=== PATIENT | female | born 1960 | race Caucasian/White ===

== ENCOUNTER 2017-10-16 11:36 | Outpatient (CLI) | payer MEDICAID ==
[~2017-10-16] VITALS: Ht 162.6 cm; Wt 113.6 kg
--- NOTE | ~2017-10-16 | OP ---
PATIENT NAME: LÓEPZ CAMPOS MEDICAL RECORD: [id number] :62 LOCATION:D.CAT ADMISSION DATE: SURGEON: NICKIE PETERSEN MD DATE OF OPERATION: 10/16/2017 PROCEDURE: Left heart catheterization, selective coronary angiography, right radial approach. CATHETERS: A 5-Montserratian sheath, 5/4 Jarad, 5/4 pig. The procedure was well tolerated. The patient returned to the goldberg, sheath removed. TR band was placed. FINDINGS: Left ventriculography in the 30-degree LOVE view: Normal wall motion, normal systolic function. CORONARY ANATOMY: 1. LEFT MAIN: Left main is free of disease. 2. LAD: Free of disease in the diagonal system. 3. CIRCUMFLEX: Free of disease in marginal system. 4. RIGHT CORONARY ARTERY: Dominant artery, gives rise to PDA, free of disease. IMPRESSION: Normal systolic function. Normal coronary anatomy. 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
--- NOTE | ~2017-10-16 | HEMODYNAMI ---
PATIENT:LÓPEZ CAMPOS MEDICAL RECORD: [id number] : 62 LOCATION:[facility] ADMISSION DATE: 10/16/17 Generatedon:10/16/201715:41 Patient name: LÓPEZ CAMPOS Patient #: [id number] : 1960 Date of study: 10/16/2017 Page: Of Hemodynamic Procedure Report Patient Data Patient Demographics Procedure consent was obtained First Name: LÓPEZ Gender: Female Last Name: BETH : 1960 Middle Initial: RAMSES Age: 57 year(s) Patient #: [id number] Race: Unknown SSN: [id number] Additional ID: [id number] Contact details [address]: [address] [place] [address] State: [place] City: [place] Zip code: [address] Past Medical History Allergies Allergen Reaction Date Comments Reported Other allergy 10/16/2017 bactrim Admission Admission Data Admission Date: 10/16/2017 Admission Time: 11:36 Arrival Date: 10/16/2017 Arrival Time: 14:00 Admit Source: Other Insurance Payor: Medicaid Height (in.): 64 BSA: 2.02 (m2) Height (cm.): 162.56 BMI: 36.9 (kg/m2) Weight (lbs.): 215 Weight (kg.): 97.52 Lab Results Lab Result Date: 10/16/2017 Lab Result Time: 0:00 Biochemistry Name Units Result Min Max BUN mg/dl 18 --(---*)-- 7 18 Creatinine mg/dl 0.8 --(-*--)-- 0.6 1.3 CBC Name Units Result Min Max Hemoglobin g/dl 13.7 --(*---)-- 13.5 17.5 Procedure Procedure Types Cath Procedure Diagnostic Procedure LHC LHC w/Coronaries Sedation Charges Moderate Sedation up to 15 minutes Procedure Description Procedure Date Procedure Date: 10/16/2017 Procedure Start Time: 15:19 Procedure End Time: 15:39 Procedure Staff Name Function Carrington Boone MD Performing Physician Cynthia Colon RT Monitor Theresa Duran RT Scrub Ilsa Raymundo RN Nurse Indication Angina Procedure Data Cath Procedure Fluoroscopy Diagnostic fluoroscopy Total fluoroscopy Time: 5.9 time: 5.9 min min Diagnostic fluoroscopy Total fluoroscopy dose: 696 dose: 696 mGy mGy Contrast Material Contrast Material Type Amount (ml) Isovue 300 63 Entry Location Entry Primary Successful Side Size Upsize Upsize Entry Closure Grace ccessful Closure Location (Fr) 1 (Fr) 2 (Fr) Remarks Device Remarks Radial Right 6 Fr Mechanical artery Short Compression Estimated blood loss: 5 ml Diagnostic catheters Device Type Used For End Catheter Placement DIAGNOSTIC [place] 110cm 5 Multi-vessel Fr catheter ([id number]) Angiography DIAGNOSTIC AR 2 MOD 5 Fr Multi-vessel catheter ([id number]) Angiography DIAGNOSTIC JL 3.5 5Fr Multi-vessel catheter ([id number]) Angiography Procedure Complications No complications Procedure Medications Medication Administration Route Dosage Oxygen etCO2 Nasal cannula 2 l/min Heparin Flush Bag added to field 2 bags (1000units/500ml NS) 0.9% NaCl I.V. 100 ml/hr Radial Cocktail added to field 1 syringe (Verapomil 2mg/Nitro 400mcg/Heparin 1500units) Fentanyl I.V. 100 mcg Versed I.V. 2 mg Versed I.V. 1 mg Fentanyl I.V. 50 mcg Versed I.V. 1 mg Fentanyl I.V. 50 mcg Fentanyl I.V. 50 mcg Hemodynamics Rest BSA: 2.02 (m2) HGB: 13.7 (g/dl) O2 Consumption: Estimated: 188.63 (ml/min) O2 Co nsumption indexed: Estimated:93.38 (ml/min/m) Heart Rate: 63 (bpm) Pressure Samples Time Site Value (mmHg) Purpose Heart Use Rate(bpm) 15:31 LV 154/14,14 Snapshot 86 Gradients Valve Time Site Site Mean SEP/DFP Peak To Heart Use 1 2 (mmHg) (sec/min) Peak Rate (mmHg) (bpm) Aortic 15:32 LV AO 94 Snapshots Pre Cath Intra NCS Post Cath Vital Signs Time Heart Resp SPO2 etCO2 NIBP (mmHg) Rhythm Pain Sedation Rate (ipm) (%) (mmHg) Status Level (bpm) 15:04:26 78 16 100 44.4 166/86(129) NSR 0 (11) 10(A) , No pain 15:09:00 65 17 95 39.1 154/79(132) NSR 0 (11) 10(A) , No pain 15:13:29 83 15 99 35.3 160/82(122) NSR 0 (11) 10(A) , No pain 15:17:51 66 18 95 29.3 127/66(94) NSR 0 (11) 10(A) , No pain 15:22:07 76 16 98 42.1 117/88(109) NSR 0 (11) 9(A) , No pain 15:26:25 89 15 98 39.1 122/71(84) NSR 0 (11) 9(A) , No pain 15:30:45 68 16 98 41.3 114/67(101) NSR 0 (11) 9(A) , No pain 15:35:03 71 16 95 41.3 116/68(102) NSR 0 (11) 10(A) , No pain 15:40:04 72 13 98 40.6 138/75(128) NSR 0 (11) 10(A) , No pain Medications Time Medication Route Dose Verified Delivered Reason Notes Ef fectiveness by by 15:07:40 Oxygen etCO2 2 l/min Ilsa Shultz Per Nasal Breanne Boone physician cannula 15:07:47 Heparin Flush added 2 bags Ilsa Shultz used for Bag to Breanne Boone procedure (1000units/500ml field SCHNEIDER NS) 15:07:56 0.9% NaCl I.V. 100 Ilsa Shultz Per ml/hr Breanne Boone physician 15:12:29 Fentanyl I.V. 100 mcg Ilsa Shultz for Breanne Boone sedation 15:12:37 Versed I.V. 2 mg Ilsa Boone MD 15:16:28 Versed I.V. 1 mg Ilsa Boone MD 15:16:31 Fentanyl I.V. 50 mcg Ilsa Shultz for Breanne Boone sedation 15:24:52 Versed I.V. 1 mg Ilsa Boone MD 15:24:56 Fentanyl I.V. 50 mcg Ilsa Shultz for Breanne Boone sedation 15:25:02 Radial Cocktail added 1 Ilsa Shultz used for (Verapomil to syringe Breanne Boone procedure 2mg/Nitro field SCHNEIDER 400mcg/Heparin 1500units) 15:29:44 Fentanyl I.V. 50 mcg Ilsa Shultz for Breanne Boone sedation Procedure Log Time Note 14:50:56 Diagnostic Cath Status : Elective 14:51:36 Indication : Angina 14:51:39 Theresa Duran RT(R) sent for patient. Start room use. 14:51:40 Time tracking: Regular hours (M-F 7:00 - 5:00) 14:51:45 Plan of Care:Hemodynamics will remain stable., Cardiac rhythm will remain stable., Comfort level will be maintained., Respiratory function will remain adequate., Patient/ family verbilizes understanding of procedure., Procedure tolerated without complication., Recovers from procedure without complications.. 14:52:55 Informed consent obtained and on chart 14:52:59 Admit Source: Other 14:53:03 Arrival Date: 10/16/2017 2:00:00 PM 14:53:12 Insurance Payor : Medicaid 14:53:23 Patient Height : 64 inches 14:53:27 Patient Weight : 215 lbs 14:55:06 Lab Result : BUN 18 mg/dl 14:55:06 Lab Result : Hemoglobin 13.7 g/dl 14:55:06 Lab Result : Creatinine 0.8 mg/dl 14:58:00 Patient received from Pre/Post Procedure Room to [facility] 2 Alert and oriented. Tansferred to table in Supine position. 14:58:01 Warm blankets applied, and micah hugger turned on for patient comfort. 14:58:01 Correct patient and procedure confirmed by team. 14:58:02 ECG and BP/O2 sat monitors applied to patient. 15:02:57 Vital chart was started 15:07:40 Oxygen 2 l/min etCO2 Nasal cannula was administered by Carrington Boone MD; Per physician; 15:07:47 Heparin Flush Bag (1000units/500ml NS) 2 bags added to field was administered by Carrington Boone MD; used for procedure; 15:07:56 0.9% NaCl 100 ml/hr I.V. was administered by Carrington Boone MD; Per physician; 15:10:42 Baseline sample Acquired. 15:10:47 Rhythm: sinus rhythm 15:10:50 Full Disclosure recording started 15:10:54 H&P Date Dictated: 10/16/2017 Within 30 days and on chart., H&P Addendum completed by physician on day of procedure. (MUST COMPLETE FOR ALL OUTPATIENTS). 15:10:56 Pre-procedure instructions explained to patient. 15:10:56 Pre-op teaching completed and patient verbalized understanding. 15:10:57 Family in waiting room. 15:10:59 Patient NPO since Midnight. 15:11:21 Patient allergic to Other allergybactrim 15:11:30 Is the patient allergic to Iodine/contrast media? No. 15:11:32 Was the patient premedicated? No 15:11:32 Is patient on blood thinner?No 15:11:34 Patient diabetic? Yes. 15:11:37 If diabetic: On Metformin? Yes 15:11:40 If on Metformin: Last Dose? 10/12/2017 15:11:44 Previous problem with sedation/anesthesia? No ? 15:11:45 Snore? Yes 15:11:46 Sleep apnea? No 15:11:47 Deviated septum? No 15:11:48 Opens mouth fully? Yes 15:11:49 Sticks out tongue? Yes 15:11:50 Airway obstruction? No ? 15:11:53 Dentures? No ? 15:11:56 Pre procedure: right dorsailis pedis pulse 1+ Palpable, but thready & weak; easily obliterated 15:11:58 Pre procedure: left dorsailis pedis pulse 1+ Palpable, but thready & weak; easily obliterated 15:12:01 Patient pain scale 0/10 ?. 15:12:07 IV patent on arrival in left antecubital with 0.9% NaCl at [facility]. 15:12:09 Lab results completed and on chart. 15:12:13 Right Radial & Right Groin area was prepped with chlora-prep and draped in sterile fashion 15:12:14 Alarms reviewed by R. N. 15:12:14 Sharps counted by scrub and verified by R.N. 15:12:16 Physician arrived 15:12:16 --------ALL STOP TIME OUT------ 15:12:16 Final Timeout: patient, procedure, and site verified with staff and physician. All members of the team are in agreement. 15:12:21 Right Radial & Right Groin site verified by team. 15:12:24 Physical assessment completed. ASA score P 2 - A patient with mild systemic disease as per Carrington Boone MD. 15:12:28 Sedation plan: IV Moderate Sedation Medication:Versed, Fentanyl 15:12:29 Fentanyl 100 mcg I.V. was administered by Carrington Boone MD; for sedation; 15:12:33 Use device set Radial Dx or PCI 15:12:34 ACIST Syringe (51903) opened to sterile field. 15:12:35 Medline Cath Pack ([id number]) opened to sterile field. 15:12:35 Bag Decanter (2002S) opened to sterile field. 15:12:37 Versed 2 mg I.V. was administered by Carrington Boone MD; ; 15:12:37 DIAGNOSTIC WIRE .035 260cm J wire (555786) opened to sterile field. 15:12:37 ACIST Hand Control (85617) opened to sterile field. 15:12:38 ACIST Manifold (15650) opened to sterile field. 15:12:39 MBrace Wrist Support ([id number]) opened to sterile field. 15:12:48 SHEATH 6Fr Prelude Radial ([id number]) opened to sterile field. 15:16:28 Versed 1 mg I.V. was administered by Carrington Boone MD; ; 15:16:31 Fentanyl 50 mcg I.V. was administered by Carrington Boone MD; for sedation; 15:16:39 Zero performed for pressure channel P1 15:18:59 Procedure started. 15:19:02 Local anesthetic to right radial artery with Lidocaine 2% by Carrington Boone MD.INITIAL ACCESS ONLY 15:24:08 A 6 Fr Short sheath was inserted into the Right Radial artery 15:24:16 A DIAGNOSTIC [place] 110cm 5 Fr catheter (243001) was advanced over the wire and used for Multi-vessel Angiography. 15:24:52 Versed 1 mg I.V. was administered by Carrington Boone MD; ; 15:24:56 Fentanyl 50 mcg I.V. was administered by Carrington Boone MD; for sedation; 15:25:02 Radial Cocktail (Verapomil 2mg/Nitro 400mcg/Heparin 1500units) 1 syringe added to field was administered by Carrington Boone MD; used for procedure; 15:26:52 Catheter removed. unable to cannulate vessel. 15:27:32 A DIAGNOSTIC AR 2 MOD 5 Fr catheter ([id number]) was advanced over the wire and used for Multi-vessel Angiography. 15:28:07 RCA angiography performed. 15:28:10 Injector settings: Ml/sec: 3, Volume: 6, 15:28:12 Catheter removed. 15:28:23 A DIAGNOSTIC JL 3.5 5Fr catheter ([id number]) was advanced over the wire and used for Multi-vessel Angiography. 15:29:44 Fentanyl 50 mcg I.V. was administered by Carrington Boone MD; for sedation; 15:31:36 LV hemodynamics recorded. 15:31:40 LV gram done using LOVE 15:31:46 Injector settings: Ml/sec: 5, Volume: 15, 15:32:11 EF : 40 % 15:33:10 Catheter removed. 15:35:29 GUIDE 6FR EBU 3.5 catheter ([id number]) opened to sterile field. 15:35:35 LCA angiography performed. 15:35:39 Injector settings: Ml/sec: 3, Volume: 6, 15:36:02 Catheter removed. 15:36:43 TR BAND Standard ([id number]) opened to sterile field. 15:37:23 Sheath removed intact; hemostasis achieved with Mechanical Compression to the Right Radial artery. 15:37:27 Procedure ended.(Physican Out) 15:38:04 Fluoroscopy time 05.90 minutes. 15:38:09 Fluoroscopy dose: 696 mGy 15:38:09 Flurop Dose total: 696 15:38:14 Contrast amount:Isovue 300 63ml. 15:38:15 Sharps counted by scrub and verified by R.N. 15:38:18 TR band inflated with 10cc of air. 15:38:20 Insertion/operative site no bleeding no hematoma. 15:38:26 Post right radial artery:stable 15:38:28 Post Procedure Pulses reassessed and unchanged 15:38:31 Post procedure rhythm: unchanged. 15:38:34 Estimated blood loss: 5 ml 15:38:36 Post procedure instruction explained to patient.Patient verbalizes understanding. 15:38:37 Patient needs reinforcement of post procedure teaching. 15:38:48 Procedure type changed to Cath procedure, Diagnostic procedure, LHC, LHC w/Coronaries, Sedation Charges, Moderate Sedation up to 15 minutes 15:38:49 Procedure and supply charges have been captured, reviewed, submitted and are correct. 15:38:54 Procedure Complication : No complications 15:38:57 Vital chart was stopped 15:38:59 See physician's report for complete and final results. 15:39:18 Report given to Pre/Post Procedure Room. 15:39:20 Patient transfered to Pre/Post Procedure Room with Stretcher. 15:39:23 Procedure ended. 15:39:23 Full Disclosure recording stopped 15:39:28 End room use (Document Last) Device Usage Item Name Manufacture Quantity Catalog Number Hospital Part Current M inimal Lot# / Charge Number Stock Stock Serial# Code ACIST Syringe Acist 1 02920 441783 643933 171456 2 0 (96905) Medical Systems Inc Medline Cath Cardinal 1 [id number] 716807 88178 183413 5 Tab [place] ([id number]) Bag Decanter Microtek 1 2001S 701528 44647 858573 5 (2001S) Medical Inc. DIAGNOSTIC WIRE St Theo 1 597640 121790 451156 840385 3 0 .035 260cm J wire (743179) ACIST Hand Acist 1 21769 394555 932529 139535 5 Control (86642) Medical Systems Inc ACIST Manifold Acist 1 60115 894853 074713 462568 5 (49432) Medical Systems Inc MBrace Wrist Advanced 1 140-0250-00 127652 06255 748408 5 Support Vascular ([id number]) Dynamics SHEATH 6Fr Merit 1 [id number] 353081 213594 051681 5 Prelude Radial Medical ([id number]) DIAGNOSTIC Terumo 1 40-8802 209300 179390 740767 5 [place] 110cm 5 Fr catheter (817287) DIAGNOSTIC AR 2 Cardinal 1 [id number] 309151 248886 048543 2 0 MOD 5 Fr Health catheter ([id number]) DIAGNOSTIC JL Cardinal 1 [id number] 366897 075190 807276 5 3.5 5Fr Health catheter (285780G) GUIDE 6FR EBU Medtronic 1 [id number] 913390 67800 835549 3 3.5 catheter ([id number]) TR BAND Terumo 1 [id number] 563492 884100 111955 4 0 Standard ([id number]) Signature Audit [place] Stage Time Signature Unsigned Intra-Procedure 10/16/2017 Cynthia Colon 3:41:30 PM RT(R) Signatures Monitor : Cynthia Colon RT Signature : Date : Time : [address] [place] [address]
[~2017-10-16 11:36] MED LIST: BAYER CHEWABLE81 MG PO; ESTRACE 0.5 MG0.5 MG PO; GLUCOPHAGE500 MG PO; HCTZ25 MG PO; RYTHMOL225 MG PO; TENORMIN25 MG PO; WELCHOL625 MG PO
[2017-10-16] MEDS ORDERED: FISH OIL 1,2001 CAP PO (13:00)
[2017-10-16] MEDS ORDERED: VITAMIN E400 UNI2 PO (13:00)
[2017-10-16] MEDS ORDERED: NEXIUM20 MG PO (13:00)
[2017-10-16] MEDS ORDERED: PROBIOTIC250 MG PO (13:01)
[2017-10-16 13:12] VITALS: BP 126/72; Ht 162.6 cm; Wt 113.6 kg
[2017-10-16 13:12] LABS: BASOPHILS 0.3 % (0-2); EOSINOPHILS 3.6 % (0-7); HEMATOCRIT 40.9 % (36.0-48.0); HEMOGLOBIN 13.7 g/dL (12-16); IMMATURE GRANULOCYTES 0.3 % (0-5); LYMPHOCYTES 36.5 % (15-50); MCHC 33.5 g/dL (31.0-37.0); MCV 86.5 fL (80.0-100.0); MEAN PLATELET VOLUME 10.8 fL (7.4-10.4); MONOCYTES 6.4 % (2-11); NEUTROPHILS 52.9 % (40-80); PLATELET COUNT 233 10x3/uL (130-400); RBC 4.73 10x6/uL (4.00-5.40); RDW 12.9 % (11.5-14.5)
[2017-10-16 13:50] LABS: CALC OSMOLALITY 280 mosm/kg (275-300); CALCIUM 9.3 mg/dL (8.5-10.1); CARBON DIOXIDE 28.8 mmol/L (21.0-32.0); CHLORIDE - SERUM 101 mmol/L (98-107); CREATININE - SERUM 0.8 mg/dL (0.6-1.3); GLUCOSE 110 mg/dL (74-106); POTASSIUM - SERUM 3.6 mmol/L (3.5-5.1); SODIUM 139 mmol/L (136-145); UREA NITROGEN 18 mg/dL (7-18); eGFR NON AFRICAN AMERICAN 78 mL/min (90-120)
== END 2017-10-16 18:25 | disposition home or self-care (01) ==
LOC: D.CATH 11:36
PROVIDERS: Internal Medicine Interventional Cardiology
DX: I20.9 Angina pectoris, unspecified (principal); E78.5 Hyperlipidemia, unspecified; E11.9 Type 2 diabetes mellitus without complications; R07.9 Chest pain, unspecified; Z01.812 Encounter for preprocedural laboratory examination